=== PATIENT | male | born 1995 | race Two or more races ===

== ENCOUNTER 2020-08-02 12:52 | Emergency (ER) | payer MEDICAID ==
[~2020-08-02] VITALS: Ht 182.9 cm; Wt 134.3 kg
[2020-08-02 12:59] VITALS: BP 145/82
--- NOTE | 2020-08-02 14:32 | NUR ---
FOOD AND BEVERAGE INTERN: PT TO ROOM FROM KO DENISE
[2020-08-02] MEDS ORDERED: IBUPROFEN 600 MG TABLET ONE (14:53)
[2020-08-02] MEDS ORDERED: IBUPROFEN 200 MG TABLET PO ONE (15:00)
== END 2020-08-02 15:07 | disposition home or self-care (01) ==
LOC: ED 13:33
DX: U07.1 COVID-19 (principal); R51.9 Headache, unspecified; R53.83 Other fatigue
CPT/HCPCS: 36415; 87081; 87635; 87880; 99283